=== PATIENT | female | born 1970 | race Two or more races ===

== ENCOUNTER 2025-04-23 19:41 | Emergency (ER) | payer MEDICAID, OTHER ==
[~2025-04-23] VITALS: Ht 167.6 cm; Wt 72.7 kg
[2025-04-23 20:00] VITALS: BP 134/72; PULSE 100; RESP 14; TEMP 98.6; O2SAT 99
--- NOTE | 2025-04-23 21:14 | ED.PDOC ---
History of Present Illness HPI Comments 55-year-old female presents with a chief complaint of right great toe pain x onset 1700 today. Patient states that she was attempting to lift a 29 gallon aquarium, but the bottom of it fell down and hit her right great toe. Patient has no deformity to the toe and is able to ambulate. There is bruising to the right great toe cuticle area. Chief Complaint: Lower Extremity Time Seen by MD: 21:10 Reviewed Notes: Medications, Allergies Allergies: Coded Allergies: NO KNOWN ALLERGIES (Unverified , 04/23/25) Information Source: Patient Mode of Arrival: Ambulatory Severity: Moderate Timing: Hours Duration: Since onset Prehospital treatment: None Past Medical History PAST MEDICAL HISTORY: Denies Surgical History: Denies all surgeries CUFFER History: Denies all CUFFER Hx Family History Family History: Reviewed,noncontributory to illness Social History Smoker: Non-Smoker Alcohol: Denies ETOH Use Drugs: Denies Drug Use Lives In: Home Constitutional: denies: chills, diaphoresis, fatigue, fever, malaise, sweats, weakness, others EENTM: denies: blurred vision, double vision, ear bleeding, ear discharge, ear drainage, ear pain, ear ringing, eye pain, eye redness, hearing loss, mouth pain, mouth swelling, nasal discharge, nose bleeding, nose congestion, nose pain, photophobia, tearing, throat pain, throat swelling, voice changes, others Respiratory: denies: cough, hemoptysis, orthopnea, SOB at rest, shortness of breath, SOB with excertion, stridor, wheezing, others Cardiovascular: denies: chest pain, dizzy spells, diaphoresis, Dyspnea on exertion, edema, irregular heart beat, left arm pain, lightheadedness, palpitations, PND, syncope, others Gastrointestinal: denies: abdomen distended, abdominal pain, blood streaked bowels, constipated, diarrhea, dysphagia, difficulty swallowing, hematemesis, melena, nausea, poor appetite, poor fluid intake, rectal bleeding, rectal pain, vomiting, others Genitourinary: denies: abnormal vagina bleeding, burning, dyspareunia, dysuria, flank pain, frequency, hematuria, incontinence, pain, , vagina discharge, urgency, others Neurological: denies: dizziness, fainting, headache, left sided numbness, left sided weakness, numbness, paresthesia, pre-existing deficit, right sided numbness, right sided weakness, seizure, speech problems, tingling, tremors, weakness, others Musculoskeletal: denies: back pain, gout, joint pain, joint swelling, muscle pain, muscle stiffness, neck pain, others Integumetry: reports: bruises; denies: change in color, change in hair/nails, dryness, laceration, lesions, lumps, rash, wounds, others Allergic/Immunocompromised: denies: Difficulty Healing, Frequent Infections, Hives, Itching, others Hematologic/Lymphatic: denies: anemia, blood clots, easy bleeding, easy bruising, swollen glands, others Endocrine: denies: excessive hunger, excessive sweating, excessive thirst, excessive urination, flushing, intolerance to cold, intolerance to heat, unexplained weight gain, unexplained weight loss, others Psychiatric: denies: anxiety, bipolar disorder, depression, hopeless, panic disorder, schizophrenia, sleepless, suicidal, others All Other Systems: Reviewed and Negative Physical Exam General Appearance: No Apparent Distress, Normal HEENT: Normal ENT Inspection, Pharynx Normal, TMs Normal Neck: Full Range of Motion, Non-Tender, Normal, Normal Inspection Respiratory: Chest Non-Tender, Lungs Clear, No Accessory Muscle Use, No Respiratory Distress, Normal Breath Sounds Cardiovascular: No Edema, No JVD, No Murmur, No Gallop, Normal Peripheral Pulses, Regular Rate/Rhythm Breast Exam: Deferred Gastrointestinal: No Organomegaly, Non Tender, No Pulsatile Mass, Normal Bowel Sounds, Soft Genitalia: Deferred Pelvic: Deferred Rectal: Deferred Extremities: Other (RIGHT CUTICLE HEMATOMA ON GREAT TOE, NO DEFORMITY) Musculoskeletal : Apperance: Normal Neurologic: Alert, hospice home health aide II-XII nml as Tested, No Motor Deficits, Normal Affect, Normal Mood, No Sensory Deficits Cerebellar Function: Normal Reflexes: Normal Skin: Dry, Normal Color, Warm Lymphatic: No Adenopathy Was a procedure done? Was a procedure done?: No Differential Dx Considerations may include: Subungual hematoma, toe fracture, toe contusion X-Ray, Labs, Meds, VS Vital Signs Date Time Temp Pulse Resp B/P (MAP) Pulse Ox O2 Delivery O2 Flow Rate FiO2 04/23/25 20:00 98.6 100 14 134/72 (92) 99 98.6 X-Ray, Labs, Meds, VS Comment X-ray shows a fracture of the distal right great toe Patient called for re-evaluation and tube splint results spot was no answer Patient presumed eloped Time of 1ST Reevaluation: 21:40 Reevaluation 1ST: Unchanged Patient Education/Counseling: Diagnosis, Treatment Family Education/Counseling: No Family Present SEPSIS Sepsis Screen Date sepsis recognized/suspect: Apr 23, 2025 Time Sepsis recognized/suspect: 1999 Recent Procedure: No On Antibiotic Therapy: No Respiratory Rate >20: No Heart Rate >90: Yes Temp<36 C (96.8 F) or >38.3 C: No SBP <90 or MAP <65 mmHG: No New Acute Mental Status Change: No Is the patient on CPAP, BIPAP,: No Physician Orders R 1st Toe Xray (04/23/25 20:41) Post Op Shoe To Affected Area (04/23/25 21:31) Vital Signs Date Time Temp Pulse Resp B/P (MAP) Pulse Ox O2 Delivery O2 Flow Rate FiO2 04/23/25 20:00 98.6 100 14 134/72 (92) 99 98.6 Departure 1 Departure Time of Disposition: 00:22 Impression: Primary Impression: Toe fracture, right Qualified Codes: S92.424A - Nondisplaced fracture of distal phalanx of right great toe, initial encounter for closed fracture Disposition: 07 LEFT AWOL/ELOPED Condition: Stable Critical Care Note Critical Care Time?: No Stability Stability form required: No Heart Score Heart Score: Heart Score Response (Comments) Value History N/A 0 EKG N/A 0 Age N/A 0 Risk Factors N/A 0 Troponin N/A 0 Total 0 I personally scribed for KIRBY RIVAS ([email or web address]) on 04/23/25 at 21:14. Electronically submitted by Raul Scott ([email or web address]). KIRBY RIVAS Apr 23, 2025 21:14
--- NOTE | 2025-04-23 21:32 | DVH ---
CLINICAL INDICATION: RIGHT GREAT TOE PAIN TECHNIQUE: XY R 1ST TOE XRAY Comparison: None FINDINGS/IMPRESSION: : Moderately displaced comminuted fracture of the distal aspect of the 1st distal phalanx. No other fractures are identified. There is no evidence of dislocation. Moderate diffuse soft tissue swelling of the 1st digit. The soft tissues are otherwise normal in appe arance.
[2025-04-24] MEDS ORDERED: IBUP-1456 PO (02:01)
== END 2025-04-24 00:23 | disposition left against medical advice (07) ==
LOC: ER 19:41
DX: S92.421A Displaced fracture of distal phalanx of right great toe, initial encounter for closed fracture (principal); W20.8XXA Other cause of strike by thrown, projected or falling object, initial encounter; Y93.89 Activity, other specified; Y92.89 Other specified places as the place of occurrence of the external cause; Y99.8 Other external cause status
CPT/HCPCS: 73660

== ENCOUNTER 2025-04-24 01:11 | Emergency (ER) | payer MEDICAID ==
[~2025-04-24] VITALS: Ht 167.6 cm; Wt 68.2 kg
[2025-04-24] MEDS ORDERED: IBUP-1456 PO (02:01)
--- NOTE | 2025-04-24 02:01 | ED.PDOC ---
Musculoskeletal HPI Comments 55 year old female presents to ER with complaints of right great toe pain x 1 day. Patient reports 6/10 right great toe pain with associated swelling/bruising to right great toe s/p a 29 gallon fish tank landing on her right great toe yesterday evening. Patient was seen in ER here last night for her complaint but eloped. Patient presents to ER ambulatory on arrival, with steady gait, in no distress. 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 Family History Family History: Unknown Social History Smoker: Non-Smoker Alcohol: Denies ETOH Use Drugs: Denies Drug Use Lives In: Home Constitutional: denies: chills, diaphoresis, fatigue, fever, malaise, sweats, weakness, others EENTM: denies: blurred vision, double vision, ear bleeding, ear discharge, ear drainage, ear pain, ear ringing, eye pain, eye redness, hearing loss, mouth pain, mouth swelling, nasal discharge, nose bleeding, nose congestion, nose pain, photophobia, tearing, throat pain, throat swelling, voice changes, others Respiratory: denies: cough, hemoptysis, orthopnea, SOB at rest, shortness of breath, SOB with excertion, stridor, wheezing, others Cardiovascular: denies: chest pain, dizzy spells, diaphoresis, Dyspnea on exertion, edema, irregular heart beat, left arm pain, lightheadedness, palpitations, PND, syncope, others Gastrointestinal: denies: abdomen distended, abdominal pain, blood streaked bowels, constipated, diarrhea, dysphagia, difficulty swallowing, hematemesis, melena, nausea, poor appetite, poor fluid intake, rectal bleeding, rectal pain, vomiting, others Genitourinary: denies: abnormal vagina bleeding, burning, dyspareunia, dysuria, flank pain, frequency, hematuria, incontinence, pain, , vagina discharge, urgency, others Neurological: denies: dizziness, fainting, headache, left sided numbness, left sided weakness, numbness, paresthesia, pre-existing deficit, right sided numbness, right sided weakness, seizure, speech problems, tingling, tremors, weakness, others Musculoskeletal: reports: others (As stated in HPI) Integumetry: reports: others (As stated in HPI) Allergic/Immunocompromised: denies: Difficulty Healing, Frequent Infections, Hives, Itching, others Hematologic/Lymphatic: denies: anemia, blood clots, easy bleeding, easy bruising, swollen glands, others Endocrine: denies: excessive hunger, excessive sweating, excessive thirst, excessive urination, flushing, intolerance to cold, intolerance to heat, unexplained weight gain, unexplained weight loss, others Psychiatric: denies: anxiety, bipolar disorder, depression, hopeless, panic disorder, schizophrenia, sleepless, suicidal, others Physical Exam General Appearance: No Apparent Distress HEENT: PERRL/EOMI Neck: Full Range of Motion, Non-Tender, Normal Respiratory: Chest Non-Tender, Lungs Clear, No Accessory Muscle Use, No Re spiratory Distress, Normal Breath Sounds Cardiovascular: No Murmur, No Gallop, Regular Rate/Rhythm Breast Exam: Deferred Gastrointestinal: NOT DONE Genitalia: Deferred Pelvic: Deferred Rectal: Deferred Extremities: Normal capillary refill, Normal range of motion Musculoskeletal : Extremity Location: Great Toe (TTP/MODERATE SWELLING/ECCHYMOSIS NOTED TO RIGHT GREAT TOE. NO SUBUNGUAL HEMATOMA/DEFORMITY/FURTHER SKIN CHANGES NOTED. PATIENT ABLE TO MOVE ALL TOES OF RIGHT FOOT. PULSES INTACT) Neurologic: Alert, No Motor Deficits, Normal Affect, Normal Mood, No Sensory Deficits Cerebellar Function: Normal Reflexes: Normal Skin: Dry, Warm Peripheral Pulses: 2+ dorsalis pedis (R), 2+ dorsalis pedis (L) Lymphatic: No Adenopathy Was a procedure done? Was a procedure done?: No Sedation Sedation?: No Differential Diagnosis EXT Differential Diagnosis: Dislocation, Laceration, Neurovascular injury X-Ray, Labs, Meds, VS Vital Signs Date Time Temp Pulse Resp B/P (MAP) Pulse Ox O2 Delivery O2 Flow Rate FiO2 04/24/25 01:45 98.0 80 16 133/77 (95) 100 98.0 PATIENT: REE GROSS: [id number]: [id number] : 1970 LOC: ER ROOM / BED: / AGE / SEX: 55 / F ADM STATUS: REG ER SERVICE 40 ORDERING PHYSICIAN: KIRBY RIVAS PROCEDURE(s): [id number] - R 1ST TOE XRAY REASON: RIGHT GREAT TOE PAIN ORDER NUMBER(s): [id number], ACCESSION NUMBER(s): [id number] CLINICAL INDICATION: RIGHT GREAT TOE PAIN TECHNIQUE: XY R 1ST TOE XRAY Comparison: None FINDINGS/IMPRESSION: : Moderately displaced comminuted fracture of the distal aspect of the 1st distal phalanx. No other fractures are identified. There is no evidence of dislocation. Moderate diffuse soft tissue swelling of the 1st digit. The soft tissues are otherwise normal in appearance. ATED BY: TIMOTHY LIU MD DICTATED DATE/TIME: 04/23/252129 SIGNED BY: TIMOTHY LIU MD SIGNED DATE/TIME: 04/23/252129 CC: PREVIOUS RIGHT 1ST TOE X-RAY REVIEWED PATIENT NEUROVASCULARLY INTACT CAS TAPE AND HARD SOLE SHOE APPLIED ADVISED ON ELEVATION AND ALTERNATE ICE ON/OFF NEEDED FOR PAIN/SWELLING ADVISED TO FOLLOW UP WITH PCP AND DATA INTEGRATION ARCHITECT IN 1-2 DAYS PATIENT VERBALIZED UNDERSTANDING AND AGREEABLE WITH CURRENT PLAN OF CARE ADVISED TO RETURN TO ER IMMEDIATELY IF SYMPTOMS WORSEN Images Reviewed?: Images reviewed and evaluated by tn Time of 1ST Reevaluation: 01:14 Reevaluation 1ST: N/A Patient Education/Counseling: Diagnosis, Treatment, Prognosis, Need For Follow Up Family Education/Counseling: No Family Present Departure 1 Departure Time of Disposition: 02:00 Impression: Primary Impression: Toe fracture, right Qualified Codes: S92.421A - Displaced fracture of distal phalanx of right great toe, initial encounter for closed fracture Disposition: 01 HOME / SELF CARE / HOMELESS Condition: Stable e-Prescriptions Ibuprofen (Ibuprofen) 800 Mg Tab 1 TAB PO TID PRN, #30 TAB 0 Refills Prov: NGUYEN JEFFERSON 04/24/25 Discharged With: Friend Critical Care Note Critical Care Time?: No Stability Stability form required: No Heart Score Heart Score: Heart Score Response (Comments) Value History N/A 0 EKG N/A 0 Age N/A 0 Risk Factors N/A 0 Troponin N/A 0 Total 0 NGUYEN JEFFERSON Apr 24, 2025 02:01
[2025-04-24 02:25] VITALS: BP 133/77; PULSE 80; RESP 16; TEMP 98; O2SAT 100
== END 2025-04-24 02:31 | disposition home or self-care (01) ==
LOC: ER 01:15
DX: S92.421A Displaced fracture of distal phalanx of right great toe, initial encounter for closed fracture (principal); Z79.899 Other long term (current) drug therapy; W20.8XXA Other cause of strike by thrown, projected or falling object, initial encounter; Y93.89 Activity, other specified; Y92.89 Other specified places as the place of occurrence of the external cause; Y99.8 Other external cause status